=== PATIENT | male | born 1985 | race Caucasian/White ===

== ENCOUNTER 2022-12-12 17:56 | Emergency (ER) | payer BC, SELFPAY ==
[2022-12-12 18:03] VITALS: BP 127/85; PULSE 78; RESP 16; TEMP 37.1; O2SAT 98
--- NOTE | 2022-12-12 19:02 | ED.GENADUL_ITS ---
Discharge Plan Disposition Patient Disposition: Home Condition: Improving Discharge Details Chief Complaint: AnimalBite Clinical Impression: Exposure to bat without known bite Primary Care Provider: None,None ED Provider: Delvin Briceno Discharge Instructions Instructions: Rabies Vaccine (By injection), Rabies Immune Globulin (By injection), Rabies (ED) Additional Instructions: Please return to the emergency department for serial vaccinations see vaccine schedule on discharge paperwork. Please return to the emergency department for any worsening symptoms Medical Decision Making 37-year-old male presents several days after waking with a bat in his room. Was able to remove the bat using a sweatshirt. Denies discrete bites or scratches, no evidence of scratches or bites on examination. Patient is afebrile nontoxic no acute distress. However given potential exposure to bat will initiate postexposure prophylaxis with serial vaccinations and one-time dose of immunoglobulin. Home care instructions and return precautions given. HPI General Date/Time Provider Initiated Documentation: 12/12/22 18:07 . HPI Narrative: 37-year-old male presents several days after waking up with a bat in his bedroom, patient was able to remove bat using a sweatshirt. Patient denies any discrete bites or scratches. General Stated Complaint: AnimalBite RC: 4 Review of Systems Narrative: Review of Systems Constitutional: negative Eyes: negative ENT: negative Cardiovascular: negative Respiratory: negative Gastrointestinal: negative : negative Musculoskeletal: negative Skin: negative Neurologic: negative Psych: negative PFSH All Active Problems (Updated 12/12/22 @ 19:05 by Delvin Briceno MD) Exposure to bat without known bite (Acute) Social History Smoking risk assessment performed?: No Exam Narrative Exam Narrative: Physical Examination General: alert, awake, cooperative, resting comfortably, no acute distress HEENT: normocephalic, atraumatic Neck: supple, trachea midline; full ROM Chest: normal to inspection Respiratory: normal respiratory effort, speaking in full sentences Cardiac: regular rate, regular rhythm, S1S2 intact, no murmurs rubs or gallops GI: abdomen soft, non-tender, non-distended; no palpable mass or hepatosplenomegaly Skin: no lesions, rashes or trauma appreciated Neuro: AAOx3, normal speech, moving all extremities Course Vital Signs Vital signs: Vital Signs Temperature 37.1 C 12/12/22 18:03 Pulse 78 12/12/22 18:03 Respiratory Rate 16 12/12/22 18:03 Blood Pressure 127/85 12/12/22 18:03 Pulse Oximetry 98 12/12/22 18:03 Temperature 37.1 C 12/12/22 18:03 Temperature Source Skin 12/12/22 18:03 Pulse 78 12/12/22 18:03 Respiratory Rate 16 12/12/22 18:03 Blood Pressure 127/85 12/12/22 18:03 Blood Pressure Position Sitting 12/12/22 18:03 Pulse Oximetry 98 12/12/22 18:03 Oxygen Delivery Method Room Air 12/12/22 18:03 Oxygen Flow Rate 0 12/12/22 18:03 Pain Level 0 12/12/22 18:03
--- NOTE | 2022-12-12 19:16 | NUR.NOTE ---
Nursing Note: info sent to [place] targeting acquisition officer
[2022-12-12] MEDS: Rabies Immune Globulin 300 UNIT/ML VIAL 1859.72 UNIT IM (20:00)
== END 2022-12-12 20:14 | disposition home or self-care (01) ==
PROVIDERS: Emergency Provider Emergency Medicine
DX: Z20.3 Contact with and (suspected) exposure to rabies (principal)
CPT/HCPCS: 96372; 99284; 90675; 99283

== ENCOUNTER 2022-12-15 19:22 | Emergency (ER) | payer BC, SELFPAY ==
[2022-12-15 19:32] VITALS: BP 141/89; PULSE 100; RESP 17; TEMP 35.9; O2SAT 97
--- NOTE | 2022-12-15 19:34 | W.ED.GENAD ---
Discharge Plan Disposition Patient Disposition: Home Discharge Details Clinical Impression: Exposure to bat without known bite Primary Care Provider: None,None ED Provider: Baljit Hernandez Home Meds and New Rx's Prescriptions: Continued multivitamin Tablet 1 tab PO DAILY fexofenadine 30 mg Tablet 30 mg PO DAILY Discharge Instructions Additional Instructions: You were seen in the emergency department for your rabies prophylaxis. You are due to have your rabies prophylaxis again in 4 days and then in 11 days. We are trying to have your visit scheduled so that you do not need to be seen in the emergency department. A professional healthcare representative should call you for follow-up. As we discussed if you develop any fevers any confusion or any difficulty swallowing please return to the emergency department. Discharge Data Discharge Date/Time-TO BE ENTERED AT DEPARTURE: 12/15/22 20:49 Medical Decision Making This is an overall well-appearing normothermic and not tachycardic 37-year-old male back in the emergency department for the second in his rabies vaccine series given his exposure to a bat approximately 8 days ago without a known bite. He has had no symptoms of fever nor difficulty swallowing nor hypersalivation to suggest acute rabies. I have asked health community leader Doreen to have care management reach out to the patient as he does not have a PCP and he will require 2 more doses of intramuscular rabies vaccine. He will be due for dose in 4 days, on 12/19, and in 11 days, on 12/26. Ideally this could be coordinated through either nursing visits or PCP visits as the patient does not require repeat ED assessment in the absence of any new or evolving symptoms. Patient offers no other complaints and was discharged. I advised ED return if patient developed difficulty swallowing difficulty handling secretions or any fevers. HPI General Date/Time Provider Initiated Documentation: 12/15/22 19:33. HPI Narrative: This is a previously healthy 37-year-old male who was in the same room as a bat approximately 8 days ago now in the emergency department for the second in his series of rabies vaccines. He he has had no symptoms of hypersalivation fevers nor difficulty swallowing. He offers no other complaints. He would not be in the emergency department were it not for his need for prophylactic rabies vaccination. Related Data Home Medications Medication Instructions Recorded Confirmed fexofenadine 30 mg tablet 30 mg PO DAILY 12/12/22 12/15/22 multivitamin 1 tab PO DAILY 12/12/22 12/15/22 Allergies Allergy/AdvReac Type Severity Reaction Status Date / Time pineapple Allergy Unverified 12/15/22 19:39 General RC: 4 PFSH All Active Problems (Updated 12/15/22 @ 19:51 by Baljit Hernandez MD) Exposure to bat without known bite (Acute) Social History Smoking/Tobacco Use Status: Never Smoking risk assessment performed?: Yes Alcohol Intake: never Substance use type: does not use Do you feel safe at home: Yes Do you feel safe in your relationship?: Yes Exam Narrative Exam Narrative: General: Well-appearing in no acute distress speaking in complete sentences. Head: Normocephalic, atraumatic. Eye: Extraocular eye movements intact. No conjunctival injection. No scleral icterus. Ear, nose, mouth, throat: Grossly normal inspection. Normal voice, handling secretions normally. Neck: Trachea midline. Cardiovascular: Well-perfused distal extremities. Respiratory: Nonlabored respiration. Gastrointestinal: Nondistended abdomen. Musculoskeletal: No edema. Moving all 4 extremities spontaneously. Skin: Normal for age and race, grossly normal temperature and turgor. No acute rash. Neurologic: Alert and appropriate, no apparent acute deficits. Psychiatric: Mood and manner are appropriate. Grooming and personal hygiene are appropriate.
--- NOTE | 2022-12-16 10:21 | NUR.NOTE ---
Nursing Note: Accessed pt chart to get the date for the next 2 vaccinations for rabies so that the form can be faxed to Infusion Room for these to be done.
== END 2022-12-15 20:49 | disposition home or self-care (01) ==
PROVIDERS: Emergency Provider Emergency Medicine
DX: Z20.3 Contact with and (suspected) exposure to rabies (principal)
CPT/HCPCS: 90471; 99284; 90675; 99283

== ENCOUNTER 2022-12-26 01:42 | Outpatient (RCR) | payer BC, SELFPAY | END 2023-01-09 23:59 | disposition home or self-care (01) | LOC: INF 01:42 | PROVIDERS: Visit Provider Student in an Organized Health Care Education/Training Program | DX: Z20.3 Contact with and (suspected) exposure to rabies (principal) | CPT/HCPCS: 90471; 90675 ==

== ENCOUNTER 2024-08-22 01:32 | Outpatient (CLI) | payer BC, SELFPAY ==
--- NOTE | 2024-08-22 13:05 | DI.RAD_ITS ---
Exam(s) XR FOOT LT COMPLETE XR FOOT RT COMPLETE EXAM: XR FOOT LT COMPLETE CLINICAL HISTORY: Left foot pain,M79.672. TECHNIQUE: 2D digital imaging was performed. Three views of both feet. COMPARISON: CR XR FOOT RT COMPLETE from 08/22/2024 FINDINGS: BONES: No acute fracture is present. No bony destructive lesion is seen. JOINTS: No dislocation present. There are no significant degenerative changes. Plantar arch is rolando ntained. SOFT TISSUE: Normal. IMPRESSION: Unremarkable radiographs of the left foot. DATA REPOSITORY: RADIATION DOSE DELIVERED:
== END 2024-08-22 01:52 ==
PROVIDERS: PCP Physician Assistant; Visit Provider Podiatrist
DX: M79.671 Pain in right foot (principal); M79.672 Pain in left foot
CPT/HCPCS: 73630

== ENCOUNTER 2024-09-16 01:00 | Outpatient (CLI) | payer BC, SELFPAY ==
[2024-09-16 11:50] LABS: Abs Immature Grans 0.19 10^3/uL (0.0-0.06); Absolute Eosinophil Count 0.19 10^3/uL (0.0-0.7); Absolute Lymphocyte Count 2.85 10^3/uL (1.2-3.4); Absolute Monocyte Count 0.71 10^3/uL (0.1-0.8); Absolute Neutrophil Count 4.34 10^3/uL (1.2-6.7); Basophils % 1.2 %; Eosinophils % 2.3 %; HCT 49.9 % (40.0-50.0); HGB 16.7 g/dL (13.5-17.5); Immature Grans % 2.3 %; MCH 29.3 pg (27.0-33.0); MCHC 33.5 % (32.0-36.0); MCV 88 fL (80-95); MPV 10.2 fL (8.0-11.0); Monocytes % 8.5 %; Neutrophils % 51.7 %; Platelet Count 229 10^3/uL (130-400); RBC 5.69 10^6/uL (4.36-5.78); RDW 12.6 % (11.8-14.1); RDW-SD 40.7 fL; WBC 8.38 10^3/uL (4.4-10.8)
[2024-09-16 11:52] LABS: ESR 1 mm/hr (0-15)
[2024-09-16 12:21] LABS: C-Reactive Protein < 0.50 mg/dL (<or=0.5)
[2024-09-16 12:34] LABS: Calculated LDL 117 mg/dL (<100); Cholesterol 228 mg/dL (<200); Ferritin 147 ng/mL (26-388); HDL Cholesterol 42 mg/dL (>or=40); Triglyceride 347 mg/dL (<150)
[2024-09-16 13:03] LABS: TSH (W/Ref FT4) 1.64 uIU/mL (0.36-3.74)
[2024-09-16 22:30] LABS: Rheumatoid Factor <8.6 IU/mL (<12.0)
[2024-09-19 10:07] LABS: Cyclic Citrullinated Peptide <2.5 U/mL (<5.0)
== END 2024-09-16 01:01 | disposition home or self-care (01) ==
LOC: LBO 01:00
PROVIDERS: PCP Physician Assistant; Visit Provider Podiatrist
DX: M25.50 Pain in unspecified joint (principal); R53.83 Other fatigue; Z00.00 Encounter for general adult medical examination without abnormal findings
CPT/HCPCS: 36415; 80061; 85652; 86200; 82728; 84443; 85025; 86140; 86431